=== PATIENT | female | born 1965 | race Caucasian/White ===

== ENCOUNTER → 2017-01-01 | Outpatient (CLI) | payer OTHER ==
[~2017-01-01] VITALS: Ht 170.2 cm; Wt 97.5 kg
[~2017-01-01] MED LIST: ATORVASTATIN CA40 MG PO; CALCIUM CITRAT1 EA15 PO; CELEBREX200 MG PO; CO Q-10300 MG PO; FIORICET 50-301 EACH PO; GABAPENTIN100 MG PO; HYDROCODON-ACE1 EAC7 PO; IRON325 M1 PO; LIPITOR40 MG PO; LIPITOR80 MG PO; LISINOPRIL10 MG PO; MAGNESIUM200 MG PO; PERCOCET 5/31 TABLET PO; PROBIOTIC1 EAC1 PO; SENNA-TIME S T1 EACH PO; SUPER B-50 COM1 EAC1 PO; SYNTHROID137 MCG PO; SYNTHROID150 MCG PO; TORADOL10 MG PO; VITAMIN D-32000 UNI2 PO; VITAMIN D2000 UNIT PO; WARFARIN SODIUM4 MG PO; WOMEN'S DAILY1 EAC1 PO; ZOFRAN4 MG PO
[2017-01-01 14:19] LABS: ALKALINE PHOSPHATASE 71 IU/L (3-129); ANION GAP 7 MEQ/L (2-14); CHLORIDE 105 MEQ/L (99-109); GFR ESTIMATE (CALCULATED) > 59 mL/min/; GLUCOSE 97 mg/dL (70-99); POTASSIUM 4.3 MEQ/L (3.7-5.4); SAMPLE HEMOLYSIS CHECK 0; SAMPLE ICTERIC CHECK 0; SAMPLE LIPEMIA CHECK 0; SODIUM 140 MEQ/L (136-147); TOTAL BILIRUBIN 0.5 MG/DL (0.0-1.0); UREA NITROGEN (BUN) 16 mg/dL (9-23)
== END | disposition home or self-care (01) ==
LOC: AMB 11:54
PROVIDERS: Internal Medicine Gastroenterology
DX: C20 Malignant neoplasm of rectum (principal); I10 Essential (primary) hypertension; E06.3 Autoimmune thyroiditis; E78.2 Mixed hyperlipidemia; E66.9 Obesity, unspecified; R73.03 Prediabetes; Z79.899 Other long term (current) drug therapy; Z87.891 Personal history of nicotine dependence; Z82.49 Family history of ischemic heart disease and other diseases of the circulatory system
CPT/HCPCS: 80053; 82378